=== PATIENT | male | born 1980 | race Caucasian/White ===

== ENCOUNTER 2019-12-09 18:53 | Inpatient (IN) | payer OTHER ==
[~2019-12-09] VITALS: Ht 188 cm; Wt 79.4 kg
--- NOTE | 2019-12-09 19:22 | NUR ---
Patient in bed, no acute distress noted. VSS
[2019-12-09] MEDS ORDERED: VANCOMYCIN IV 1,000 MG in IV DEXTROSE 5% 250 ML IV ONE (19:30)
[2019-12-09] MEDS ORDERED: LIDOCAINE 1%-EPI 1:100,000 20 ML VIAL IJ ONE (19:30)
[2019-12-09] MEDS ORDERED: SODIUM BICARBONATE 4.2 % (NEUT) 5 ML VIAL INJ ONE (19:30)
[2019-12-09] MEDS ORDERED: ONDANSETRON 4 MG/2 ML VIAL IV ONE (19:30)
[2019-12-09] MEDS ORDERED: HYDROMORPHONE 1 MG/1 ML DISP.SYRIN IV ONE (19:30)
[2019-12-09] MEDS ORDERED: LORAZEPAM 2 MG/1 ML VIAL IV ONE (19:30)
[2019-12-09] MEDS ORDERED: HYDROMORPHONE 2 MG/1 ML DISP.SYRIN ONE (19:39)
[2019-12-09] MEDS ORDERED: LORAZEPAM 2 MG/1 ML VIAL ONE ×2 (19:39→19:44)
[2019-12-09] MEDS ORDERED: ONDANSETRON 4 MG/2 ML VIAL ONE (19:39)
[2019-12-09 19:42] LABS: BASOPHILS # (AUTO) 0.1 K/uL (0.0-8.0); BASOPHILS % (AUTO) 0.6 % (0.0-2.0); EOSINOPHILS # (AUTO) 0.3 K/uL (0.0-0.7); EOSINOPHILS % (AUTO) 2.3 % (0.0-7.0); HEMATOCRIT 36.2 % (36.7-47.1); LYMPHOCYTES # (AUTO) 2.1 K/uL (20.0-40.0); LYMPHOCYTES % (AUTO) 15.6 % (20.5-51.5); MEAN CORPUSCULAR HGB CONC 33 g/dL (32.5-36.3); MEAN CORPUSCULAR VOLUME 84.3 fL (73.0-96.2); MONOCYTES # (AUTO) 1.1 K/uL (2.0-10.0); MONOCYTES % (AUTO) 8.4 % (0.0-11.0); NEUTROPHILS % (AUTO) 73.1 % (38.5-71.5); PLATELET COUNT (AUTO) 335 K/uL (152-348); WHITE BLOOD COUNT (AUTO) 13.7 K/uL (3.6-10.2)
[2019-12-09 19:45] LABS: CREATININE 0.9 mg/dL (0.6-1.3); POTASSIUM 3.4 mmol/L (3.5-5.1)
[2019-12-09 19:50] LABS: BILIRUBIN,DIRECT 0.1 mg/dL (0.0-0.2); BILIRUBIN,TOTAL 0.3 mg/dL (0.1-1.0)
[2019-12-09] MEDS ORDERED: VANCOMYCIN IV 200 ML ONE (19:50)
[2019-12-09 19:51] LABS: TOTAL PROTEIN, SERUM 7.6 g/dL (6.4-8.2)
[2019-12-09] MEDS ORDERED: diphenhydrAMINE 50 MG/1 ML VIAL ONE (20:07)
--- NOTE | 2019-12-09 20:21 | NUR ---
Call placed to [facility].
--- NOTE | 2019-12-09 20:44 | NUR ---
Report to Geneva DILLARD. Pt. admitted to Med Surg , under care of Dr. Lyles Belongs List completed
[2019-12-09] MEDS ORDERED: ZOLPIDEM 5 MG TABLET PO PRN (21:00)
[2019-12-09] MEDS ORDERED: ONDANSETRON 4 MG/2 ML VIAL IV PRN (21:00)
[2019-12-09] MEDS ORDERED: Z GUARD REMEDY PASTE 57 GM TUBE TOP PRN (21:00)
[2019-12-09] MEDS ORDERED: ACETAMINOPHEN 325 MG TABLET PO PRN (21:00)
[2019-12-09] MEDS ORDERED: MAGNESIUM HYDROXIDE 30 ML LIQUID UDC PO PRN (21:00)
[2019-12-09] MEDS ORDERED: POTASSIUM CHLORIDE 20 MEQ TAB.PRT.SR PO ONE (21:00)
--- NOTE | 2019-12-09 21:00 | NUR ---
RECEIVED PATIENT VIA GURNEY FROM ER. PATIENT IS VERY SEDATED AT THIS TIME. AWAKES TO NAME, BUT FALLS BACK ASLEEP QUICKLY. PATIENT WAS PREVIOUSLY MEDICATED IN ER PER DR. ORTIZ BEFORE HE PERFORMED AN I/D ON PATIENT. PATIENT WAS GIVEN DILAUDID 2MG AND ATIVAN 1MG IV PER DR. ORTIZ. VSS UPON ADMISSION. ON O2 2L NC SATING 99%. NO RESP. DISTRESS NOTED. DRESSING NOTED TO RIGHT AC, POST I/D. BED ALARM ON. CALL LIGHT IN REACH. ALL NEEDS ATTENDED. WILL CONTINUE TO MONITOR AND ASSESS.
[2019-12-09 21:37] VITALS: BP 140/95
--- NOTE | 2019-12-09 22:13 | NUR ---
PATIENT ASLEEP IN BED. EASILY AROUSABLE. A/O X3. MORE COHERENT AND ABLE TO ANSWER QUESTIONS. PATIENT REFUSED PICTURE TO BE TAKEN OR DRESSING REMOVED NOTED TO RIGHT AC. WRECKER DRIVER NOTIFIED. ALL NEEDS ATTENDED. WILL CONTINUE TO MONITOR AND ASSESS.
[2019-12-10] MEDS ORDERED: VANCOMYCIN 1000 MG VIAL ONE (00:22)
[2019-12-10] MEDS ORDERED: VANCOMYCIN HCL 500 MG VIAL ONE (00:23)
[2019-12-10] MEDS ORDERED: VANCOMYCIN IV 1,250 MG in IV DEXTROSE 5% 250 ML IV ONE (04:00)
[2019-12-10] MEDS: HYDROCODONE/APAP 5-325MG TABLET PO PRN ×2 (05:07→10:49)
--- NOTE | 2019-12-10 05:10 | NUR ---
PATIENT AWAKE IN BED. IV ACCIDENTALLY DISLODGED. RESTARTED TO RIGHT HAND #20 GAUGE. PATIENT C/O PAIN IN LEFT ARM. GIVEN NORCO 1 TAB ORDERED PRN. VSS. PATIENT COOPERATIVE WITH DRESSING CHANGE TO LEFT AC. STERILE DRESSING APPLIED, C/D/I. PICTURES TAKEN AND PLACED IN CHART. ELEVATED ON PILLOW. PATIENTS LOWER SHORTS WET, PATIENT REFUSING TO CHANGE AT THIS TIME. WILL CONTINUE TO MONITOR AND ASSESS. BED ALARM ON FOR SAFETY, ALL NEEDS ATTENDED.
[2019-12-10 05:57] VITALS: BP 127/83
[2019-12-10] MEDS ORDERED: HYDROMORPHONE 1 MG/1 ML DISP.SYRIN IV ONE (06:00)
--- NOTE | 2019-12-10 06:01 | NUR ---
RECEIVED ONE TIME ORDER FOR DILAUDID 1MG IV. AWARE PATIENT WAS PREVIOUSLY GIVEN NORCO. OK TO GIVE DILAUDID. ON O2 2L NC SATING WELL. WILL CONTINUE TO MONITOR AND ASSESS. VSS. BED ALARM ON.
[2019-12-10 06:24] LABS: BASOPHILS % (AUTO) 0.4 % (0.0-2.0); EOSINOPHILS # (AUTO) 0.3 K/uL (0.0-0.7); EOSINOPHILS % (AUTO) 2.2 % (0.0-7.0); HEMATOCRIT 36.1 % (36.7-47.1); HEMOGLOBIN 12.1 g/dL (12.5-16.3); LYMPHOCYTES # (AUTO) 1.5 K/uL (20.0-40.0); LYMPHOCYTES % (AUTO) 13.1 % (20.5-51.5); MEAN CORPUSCULAR HEMOGLOBIN 28.6 uug (23.8-33.4); MEAN CORPUSCULAR HGB CONC 34 g/dL (32.5-36.3); MEAN CORPUSCULAR VOLUME 84.8 fL (73.0-96.2); MONOCYTES # (AUTO) 0.9 K/uL (2.0-10.0); MONOCYTES % (AUTO) 7.7 % (0.0-11.0); NEUTROPHILS # (AUTO) 9.1 K/uL (1.8-8.9); NEUTROPHILS % (AUTO) 76.6 % (38.5-71.5); PLATELET COUNT (AUTO) 310 K/uL (152-348); RED BLOOD CELL COUNT(AUTO) 4.25 MIL/uL (4.06-5.63); WHITE BLOOD COUNT (AUTO) 11.8 K/uL (3.6-10.2)
[2019-12-10 06:30] LABS: CREATININE 0.7 mg/dL (0.6-1.3); PHOSPHOROUS 3.3 mg/dL (2.5-4.9); POTASSIUM 3.7 mmol/L (3.5-5.1)
--- NOTE | 2019-12-10 06:54 | NUR ---
PATIENT ASLEEP IN BED. SLEEPING WELL. WILL CONTINUE TO MONITOR AND ASSESS.
--- NOTE | 2019-12-10 08:05 | NUR ---
RECEIVED PT RESTING IN BED COMFORTABLY. NO ACUTE DISTRESS OR SOB NOTED. PT ALERT AND ORIENTED X3. CALL LIGHT WITHIN REACH. PAIN TO BE MANAGED WITH MEDICATION. IV FLUSHES WELL, NO REDNESS OR SIGNS OF LEAKAGE OR INFILTRATION. CALL LIGHT WITHIN REACH. BED LOCKED AND IN LOW POSITION. WILL CONTINUE TO MONITOR FOR SAFETY AND COMFORT.
[2019-12-10] MEDS ORDERED: NICOTINE 7 MG/24HR PATCH TD SCH (09:00)
--- NOTE | 2019-12-10 09:30 | NUR ---
PHARMACY CLINICAL NOTES: (VANCOMYCIN DOSING) S: To start Vancomycin for 39 YO male for cellulitis O: BUN/SCR 12/0.7, WBC 11.8, TEMP 98.3 HT 188 CM WT 79 KG A/P: Patient received vanco 1gm IVPB x1 on 12/09 at 2000. he also received vanco 1250 mg IVPB x1 on 12/10 at 0400. Will start Vancomycin 1500 mg IVPB q9hr,for predicted vanco trough level of 15 mcg/ml at steady state. 1st dose today at noon. Plan to order vanco trough level before 4th dose (not yet ordered). Will continue to monitor renal fxn and levels and adjust dose as necessary. Will follow
--- NOTE | 2019-12-10 09:43 | NUR ---
ECHO DONE 60% EF
[2019-12-10 11:30] VITALS: BP 132/83
[2019-12-10] MEDS ORDERED: VANCOMYCIN IV 1,500 MG in IV DEXTROSE 5% 500 ML IV SCH (12:00)
[2019-12-10] MEDS ORDERED: HYDROCODONE/APAP 10-325 MG TABLET PO PRN (14:30)
[2019-12-10 16:00] VITALS: BP 117/81
--- NOTE | 2019-12-10 16:27 | NUR ---
PT LEFT AMA. AMA FORM SIGNED. DR FENG AWARE OF PT'S DESIRE TO LEAVE AMA. DR CONTACTED BY [facility]. PT MADE AWARE OF DANGERS OF LEAVING AMA WITH CURRENT CONDITION PER DR FENG COMMUNICATION. IV LINE REMOVED INTACT. BELONGINGS LIST SIGNED. BELONGINGS RETURNED. WOUND DRESSED. SAMM FROM [facility] PICKED UP PATIENT. PT ESCORTED TO MAIN LOBBY BY [facility] STAFF. NELSON LUDWIG RN, DR FENG, [facility] AWARE.
== END 2019-12-10 16:20 | disposition left against medical advice (07) | DRG 603 ==
LOC: ER 18:56 → MEDSURG3 20:46
PROVIDERS: ADMIT Family Medicine; ATTEND Family Medicine
PROC: 0J9G3ZZ Drainage of Right Lower Arm Subcutaneous Tissue and Fascia, Percutaneous Approach (ICD-10-PCS; principal; 2019-12-09)
DX: L03.113 Cellulitis of right upper limb (principal); E44.1 Mild protein-calorie malnutrition; L02.413 Cutaneous abscess of right upper limb; E87.6 Hypokalemia; F15.10 Other stimulant abuse, uncomplicated; Z68.22 Body mass index [BMI] 22.0-22.9, adult; S51.831S Puncture wound without foreign body of right forearm, sequela; X78.8XXS Intentional self-harm by other sharp object, sequela; F11.10 Opioid abuse, uncomplicated; F17.210 Nicotine dependence, cigarettes, uncomplicated; S41.132A Puncture wound without foreign body of left upper arm, initial encounter; X78.8XXA Intentional self-harm by other sharp object, initial encounter; Y93.89 Activity, other specified; Y92.89 Other specified places as the place of occurrence of the external cause; D63.8 Anemia in other chronic diseases classified elsewhere; R73.9 Hyperglycemia, unspecified; Z76.5 Malingerer [conscious simulation]; Z83.3 Family history of diabetes mellitus
CPT/HCPCS: 36415; 83735; 84100; 85025; 87040; 93307; A4663; A9150; G0378; J1170; J1200; J2060; J2405; J3370; J3490; J7050; J7060